=== PATIENT | female | born 1970 | race Caucasian/White ===

== ENCOUNTER 2018-02-18 10:24 | Inpatient (IN) | payer MEDICARE, OTHER ==
[2018-02-18] MEDS: morphine 4 MG/ML VIAL IV (11:14)
[2018-02-18] MEDS: SOD CHLORIDE 0.9% 1,000 ML IV (11:14)
[2018-02-18] MEDS: ONDANSETRON 4 MG INJ IV (11:14)
[2018-02-18 11:26] LABS: ADD MAN DIFF? NO
[2018-02-18 11:30] LABS: WHITE BLOOD COUNT 8.1 10^3/ul (4.8-10.8)
[2018-02-18 11:30] LABS: BASOPHILS % 0.5 % (0.0-2.0); EOSINOPHILS # 0.1 10^3/ul (0.0-0.5); EOSINOPHILS % 0.7 % (0.0-7.0); HEMATOCRIT 35.4 % (37.0-47.0); HEMOGLOBIN 11.6 g/dl (12.0-16.0); LYMPHOCYTES # 1.4 10^3/ul (0.8-2.9); LYMPHOCYTES % 16.7 % (15.0-51.0); MEAN CORPUSCULAR HGB CONC 32.8 g/dl (32.0-37.0); MEAN CORPUSCULAR VOLUME 82.3 fl (82.0-101.0); MEAN PLATELET VOLUME 9.6 fl (7.4-10.4); MONOCYTE # 0.8 10^3/ul (0.3-0.9); MONOCYTES % 9.8 % (0.0-11.0); NEUTROPHIL # 5.8 10^3/ul (1.6-7.5); NEUTROPHILS % 71.6 % (39.0-77.0); PLATELET COUNT 204 10^3/UL (140-415); RED CELL DISTRIBUTION WIDTH 16.9 % (11.5-14.5)
[2018-02-18 11:55] LABS: ALANINE AMINOTRANSFERASE 34 IU/L (13-69); ALBUMIN 3.9 g/dl (3.3-4.9); ALBUMIN/GLOBULIN RATIO 1.18; ALKALINE PHOSPHATASE 70 IU/L (42-121); ANION GAP 20 (8-16); ASPARTATE AMINO TRANSFERASE 258 IU/L (15-46); BILIRUBIN,INDIRECT 0.4 mg/dl (0-1.1); BILIRUBIN,TOTAL 0.4 mg/dl (0.2-1.3); BLOOD UREA NITROGEN 12 mg/dl (7-20); CALCIUM 9.2 mg/dl (8.4-10.2); CARBON DIOXIDE 22 mmol/L (21-31); CHLORIDE 104 mmol/L (97-110); GLUCOSE 76 mg/dl (70-220); LIPASE 52 U/L (23-300); POTASSIUM 3.9 mmol/L (3.5-5.1); SODIUM 142 mmol/L (135-144); TOTAL PROTEIN 7.2 g/dl (6.1-8.1)
[2018-02-18 12:06] LABS: LACTIC ACID 1.8 mmol/L (0.5-2.0)
[2018-02-18 12:07] LABS: TROPONIN-I < 0.012 ng/ml (0.00-0.12)
[2018-02-18] MEDS ORDERED: ONDANSETRON 4 MG INJ IV (15:00)
[2018-02-18] MEDS ORDERED: ACETAMINOPHEN 325 MG TAB PO ×2 (15:00→21:30)
[2018-02-18] MEDS ORDERED: ALBUTEROL/IPRATROPIUM (NEB) 3 ML AMP HHN (21:30)
[2018-02-18] MEDS: ZOLPIDEM 5 MG TAB PO (22:50)
[2018-02-19] MEDS: morphine 2 MG INJ IV ×2 (01:14→20:49)
[2018-02-19] MEDS ORDERED: NACL 0.9% 3 ML SYG IV ×2 (09:00→10:30)
[2018-02-19] MEDS ORDERED: BISACODYL 10 MG SUPP PR (10:30)
[2018-02-19] MEDS ORDERED: MAGNESIUM HYDROXIDE 30ML CUP PO (10:30)
[2018-02-19] MEDS ORDERED: DOCUSATE SODIUM 100 MG CAP PO (10:30)
[2018-02-19] MEDS ORDERED: ACETAMINOPHEN 325 MG TAB PO (10:30)
[2018-02-19] MEDS ORDERED: morphine 2 MG INJ IV (10:30)
[2018-02-19] MEDS ORDERED: ACETAMINOPHEN 650 MG SUPP PR (10:30)
[2018-02-19] MEDS ORDERED: HYDROCODONE/APAP (5/325) TAB PO (10:30)
[2018-02-19] MEDS ORDERED: [UNRECOGNIZED DRUG - OTHER] PO (12:00)
[2018-02-19] MEDS: [UNRECOGNIZED DRUG - REMARK] XX ×2 (12:30→20:30)
[2018-02-19 13:35] LABS: INR 1.36; PT RATIO 1.3
[2018-02-19] MEDS: ALBUTEROL/IPRATROPIUM (NEB) 3 ML AMP HHN ×3 (14:15→21:06)
[2018-02-19] MEDS: CAPECITABINE 500 MG TAB PO ×2 (15:29→20:57)
[2018-02-19] MEDS: ONDANSETRON 4 MG INJ IV (20:59)
[2018-02-20] MEDS: [UNRECOGNIZED DRUG - REMARK] XX ×3 (00:11→20:30)
[2018-02-20] MEDS: PANTOPRAZOLE 40 MG INJ IV (05:07)
[2018-02-20] MEDS: morphine 2 MG INJ IV ×2 (05:07→13:26)
[2018-02-20 08:56] LABS: ADD MAN DIFF? NO
[2018-02-20] MEDS: CAPECITABINE 500 MG TAB PO ×2 (09:00→20:35)
[2018-02-20 09:05] LABS: BASOPHILS % 0.4 % (0.0-2.0); EOSINOPHILS # 0.1 10^3/ul (0.0-0.5); EOSINOPHILS % 0.7 % (0.0-7.0); HEMATOCRIT 34.5 % (37.0-47.0); HEMOGLOBIN 11.4 g/dl (12.0-16.0); LYMPHOCYTES # 1.5 10^3/ul (0.8-2.9); LYMPHOCYTES % 19.6 % (15.0-51.0); MEAN CORPUSCULAR HEMOGLOBIN 27.7 pg (29.0-33.0); MEAN CORPUSCULAR VOLUME 83.7 fl (82.0-101.0); MEAN PLATELET VOLUME 9.4 fl (7.4-10.4); MONOCYTE # 0.9 10^3/ul (0.3-0.9); MONOCYTES % 11.5 % (0.0-11.0); NEUTROPHILS % 67.1 % (39.0-77.0); PLATELET COUNT 201 10^3/UL (140-415); RED BLOOD COUNT 4.12 10^6/ul (4.20-5.40)
[2018-02-20 09:05] LABS: WHITE BLOOD COUNT 7.4 10^3/ul (4.8-10.8)
[2018-02-20 09:14] LABS: HEMOGLOBIN A1C 5.1 % (0-5.9)
[2018-02-20 09:26] LABS: CHOL/HDL RATIO 5.2 RATIO; CHOLESTEROL 94 mg/dl (100-200); HDL CHOLESTEROL 18 mg/dl (34-88); LDL CHOLESTEROL,CALCULATED 48 mg/dl; MAGNESIUM 1.4 mg/dl (1.7-2.5); TRIGLYCERIDES 140 mg/dl (0-149)
[2018-02-20 09:26] LABS: PHOSPHORUS 4.5 mg/dl (2.5-4.9)
[2018-02-20 09:30] LABS: ALANINE AMINOTRANSFERASE 32 IU/L (13-69); ALBUMIN 3.5 g/dl (3.3-4.9); ALBUMIN/GLOBULIN RATIO 1.02; ALKALINE PHOSPHATASE 76 IU/L (42-121); ANION GAP 21 (8-16); ASPARTATE AMINO TRANSFERASE 307 IU/L (15-46); BILIRUBIN,INDIRECT 0.7 mg/dl (0-1.1); BILIRUBIN,TOTAL 0.7 mg/dl (0.2-1.3); BLOOD UREA NITROGEN 11 mg/dl (7-20); CALCIUM 8.9 mg/dl (8.4-10.2); CARBON DIOXIDE 22 mmol/L (21-31); CHLORIDE 103 mmol/L (97-110); GLUCOSE 82 mg/dl (70-220); POTASSIUM 3.9 mmol/L (3.5-5.1); SODIUM 142 mmol/L (135-144); TOTAL PROTEIN 6.9 g/dl (6.1-8.1)
[2018-02-20 09:44] LABS: FREE THYROXINE INDEX (Calc) 3.96 ug/ml (0.65-3.89); T3 UPTAKE 36.3 % (23.5-40.5); T4 (THYROXINE) 10.9 ug/dl (5.5-11.0)
[2018-02-20] MEDS: ALBUTEROL/IPRATROPIUM (NEB) 3 ML AMP HHN ×4 (10:20→22:07)
[2018-02-20 10:34] LABS: IRON 50 ug/dl (35-150)
[2018-02-20 10:45] LABS: % IRON SATURATION 17 % SAT (22-52); TOTAL IRON BINDING CAPACITY 303 ug/dl (241-421)
[2018-02-20] MEDS: MAGNESIUM SULFATE 3 GM in DEXTROSE 5% 100 ML IVPB (13:15)
[2018-02-20] MEDS: morphine LIQ (10 MG/5 ML) CUP PO (18:40)
[2018-02-21] MEDS: morphine LIQ (10 MG/5 ML) CUP PO ×2 (00:27→14:50)
[2018-02-21] MEDS: [UNRECOGNIZED DRUG - REMARK] XX ×3 (04:30→20:03)
[2018-02-21] MEDS: PANTOPRAZOLE 40 MG INJ IV (06:08)
[2018-02-21 07:24] LABS: ANION GAP 18 (8-16); BLOOD UREA NITROGEN 9 mg/dl (7-20); CALCIUM 8.6 mg/dl (8.4-10.2); CARBON DIOXIDE 24 mmol/L (21-31); CHLORIDE 102 mmol/L (97-110); CREATININE 0.65 mg/dl (0.44-1.00); GLUCOSE 78 mg/dl (70-220); POTASSIUM 4.3 mmol/L (3.5-5.1); SODIUM 140 mmol/L (135-144)
[2018-02-21] MEDS: CAPECITABINE 500 MG TAB PO ×2 (09:00→21:42)
[2018-02-21] MEDS: ALBUTEROL/IPRATROPIUM (NEB) 3 ML AMP HHN ×4 (09:29→21:53)
[2018-02-21] MEDS: MAGNESIUM SULFATE 2 GM/50 ML 50 ML IVPB (10:00)
[2018-02-21] MEDS: FERROUS SULFATE (EC) 325 MG TAB PO (11:00)
[2018-02-21] MEDS: SOD CHLORIDE 0.9% 100 ML (14:12)
[2018-02-21] MEDS: IOHEXOL 300MG/ML 150 ML BTL (14:13)
[2018-02-21] MEDS: BARIUM SULF 2% 450 ML BTL (BERRY SMOOTHIE) PO (15:00)
[2018-02-22] MEDS: morphine LIQ (10 MG/5 ML) CUP PO (01:01)
[2018-02-22] MEDS: [UNRECOGNIZED DRUG - REMARK] XX ×2 (04:30→11:10)
[2018-02-22] MEDS: PANTOPRAZOLE 40 MG INJ IV (05:23)
[2018-02-22] MEDS: ONDANSETRON 4 MG INJ IV ×2 (05:23→14:53)
[2018-02-22] MEDS: HYDROCODONE/APAP (5/325) TAB PO ×3 (05:23→15:53)
[2018-02-22] MEDS: CAPECITABINE 500 MG TAB PO (08:27)
[2018-02-22] MEDS: FERROUS SULFATE (EC) 325 MG TAB PO (08:28)
[2018-02-22 09:13] LABS: ANION GAP 17 (8-16); BLOOD UREA NITROGEN 8 mg/dl (7-20); CALCIUM 8.9 mg/dl (8.4-10.2); CARBON DIOXIDE 23 mmol/L (21-31); CHLORIDE 103 mmol/L (97-110); GLUCOSE 76 mg/dl (70-220); POTASSIUM 4.2 mmol/L (3.5-5.1); SODIUM 139 mmol/L (135-144)
[2018-02-22] MEDS: ALBUTEROL/IPRATROPIUM (NEB) 3 ML AMP HHN ×3 (09:16→17:30)
== END 2018-02-22 18:00 | disposition home or self-care (01) | DRG 180 ==
LOC: E/R 10:24 → MS4 15:00
DX: C78.01 Secondary malignant neoplasm of right lung (principal); J96.90 Respiratory failure, unspecified, unspecified whether with hypoxia or hypercapnia; C78.7 Secondary malignant neoplasm of liver and intrahepatic bile duct; C79.31 Secondary malignant neoplasm of brain; J91.0 Malignant pleural effusion; J98.11 Atelectasis; C79.51 Secondary malignant neoplasm of bone; C50.919 Malignant neoplasm of unspecified site of unspecified female breast; D64.9 Anemia, unspecified; Z80.3 Family history of malignant neoplasm of breast
CPT/HCPCS: 36415; 70552; 71045; 71260; 74177; 76604; 80048; 80053; 80061; 83036; 83540; 83605; 83690; 83735; 84100; 84436; 84443; 84479; 84484; 84703; 85025; 85610; 87040; 94640; 94664; 96374; 96375; 99285-25